=== PATIENT | male | born 1945 | race Caucasian/White ===

== ENCOUNTER 2018-09-08 18:17 | Observation (INO) | payer MEDICARE, OTHER ==
[2018-09-08] MEDS ORDERED: Aspirin 81 MG Tab.Chew PO ONE (18:24)
[2018-09-08] MEDS ORDERED: Morphine 2 MG/ML Syringe IVPUSH ONE (18:24)
[2018-09-08] MEDS ORDERED: Ondansetron 4 MG/2 ML SDV IVPUSH ONE (18:24)
[2018-09-08] MEDS ORDERED: Sodium Chloride 0.9% 10 ML Syringe FLUSH PRN ×2 (18:24→21:17)
[2018-09-08] MEDS ORDERED: Nitroglycerin 2% Oint 1 GM UD Packet TOP ONE (18:24)
[2018-09-08] MEDS ORDERED: Sodium Chloride 0.9% 2.5 ML Syringe FLUSH PRN ×2 (18:24→21:17)
--- NOTE | 2018-09-08 18:27 | EDM.PDOC ---
<Kristopher Rios J - Last Filed: 09/08/18 18:26> ED HPI GENERAL MEDICAL PROBLEM - General Stated Complaint: TIGHTNESS IN CHEST Time Seen by Provider: 09/08/18 18:23 - History of Present Illness INITIAL COMMENTS - FREE TEXT/NARRATIVE: HISTORY AND PHYSICAL: History of present illness: Patient is a 73-year-old white male history of hypertension presents with concern of chest pain that started earlier this afternoon feels as if a tightness across his chest he had some associated dizziness and denies diaphoresis shortness of breath nausea vomiting or palpitations. Review of systems: As per history of present illness and below otherwise all systems reviewed and negative. Past medical history: As per history of present illness and as reviewed below otherwise noncontributory. Surgical history: As per history of present illness and as reviewed below otherwise noncontributory. Social history: No reported history of drug or alcohol abuse. Family history: As per history of present illness and as reviewed below otherwise noncontributory. Physical exam: HEENT: Atraumatic, normocephalic, pupils reactive, negative for conjunctival pallor or scleral icterus, mucous membranes moist, throat clear, neck supple, nontender, trachea midline. Lungs: Clear to auscultation, breath sounds equal bilaterally, chest nontender. Heart: S1S2, regular, negative for clicks, rubs, or JVD. Abdomen: Soft, nondistended, nontender. Negative for masses or hepatosplenomegaly. Negative for costovertebral tenderness. Pelvis: Stable nontender. Genitourinary: Deferred. Rectal: Deferred. Extremities: Atraumatic, negative for cords or calf pain. Neurovascular unremarkable. Neuro: Awake, alert, oriented. Cranial nerves II through XII unremarkable. Cerebellum unremarkable. Motor and sensory unremarkable throughout. Exam nonfocal. Diagnostics: CBC CMP troponin PT/INR BMP chest x-ray EKG Therapeutics: IV O2 monitor aspirin 324 mg nitroglycerin Impression: #1 chest pain #2 hypertension Definitive disposition and diagnosis as appropriate pending reevaluation and review of above. ED ROS GENERAL - Review of Systems Review Of Systems: ROS reveals no pertinent complaints other than HPI. ED EXAM, GENERAL - Physical Exam Exam: See Below (See dictation) Course - Vital Signs Last Recorded V/S: Last Vital Signs Temp 97.0 F 09/08/18 18:17 Pulse 84 09/08/18 18:17 Resp 18 09/08/18 18:17 BP 139/76 09/08/18 18:51 Pulse Ox 100 09/08/18 18:24 - Orders/Labs/Meds Orders: Active Orders 24 hr Category Date Time Status Cardiac Monitoring [RC] . DIRECTED Care 09/08/18 18:24 Active EKG Documentation Completion [RC] STAT Care 09/08/18 18:24 Active Oxygen Therapy, ED [RC] ASDIRECTED Care 09/08/18 18:24 Active Pulse Oximetry [RC] ASDIRECTED Care 09/08/18 18:24 Active Chest 1V Frontal [CR] Stat Exams 09/08/18 18:24 Taken B-TYPE NATRIURETIC PEPTIDE,BNP [CHEM] Stat Lab 09/08/18 18:34 Received Sodium Chloride 0.9% [Normal Saline] 1,000 ml Med 09/08/18 18:30 Active IV STAT Sodium Chloride 0.9% [Saline Flush] Med 09/08/18 18:24 Active 10 ml FLUSH ASDIRECTED PRN Sodium Chloride 0.9% [Saline Flush] Med 09/08/18 18:24 Active 2.5 ml FLUSH ASDIRECTED PRN Saline Lock Insert [OM.PC] Stat Oth 09/08/18 18:23 Ordered Medication Orders Sodium Chloride (Normal Saline) 1,000 mls @ 125 mls/hr IV STAT [facility] Last Admin: 09/08/18 18:36 Dose: 125 mls/hr Sodium Chloride (Saline Flush) 10 ml FLUSH ASDIRECTED PRN PRN Reason: Keep Vein Open Last Admin: 09/08/18 18:40 Dose: 10 ml Sodium Chloride (Saline Flush) 2.5 ml FLUSH ASDIRECTED PRN PRN Reason: Keep Vein Open Last Admin: 09/08/18 18:40 Dose: 2.5 ml Labs: Laboratory Tests 09/08/18 09/08/18 09/08/18 Range/Units 18:34 18:34 18:34 WBC 10.37 (4.0-11.0) K/uL RBC 5.44 (4.50-5.90) M/uL Hgb 16.8 (13.0-17.0) g/dL Hct 48.4 (38.0-50.0) % MCV 89.0 (80.0-98.0) fL MCH 30.9 (27.0-32.0) pg MCHC 34.7 (31.0-37.0) g/dL RDW Std Deviation 44.2 (28.0-62.0) fl RDW Coeff of Isabell 14 (11.0-15.0) % Plt Count 136 L (150-400) K/uL MPV 10.00 (7.40-12.00) fL Neut % (Auto) 74.4 (48.0-80.0) % Lymph % (Auto) 16.1 (16.0-40.0) % [place] % (Auto) 6.3 (0.0-15.0) % Eos % (Auto) 2.8 (0.0-7.0) % Baso % (Auto) 0.4 (0.0-1.5) % Neut # (Auto) 7.7 H (1.4-5.7) K/uL Lymph # (Auto) 1.7 (0.6-2.4) K/uL [place] # (Auto) 0.7 (0.0-0.8) K/uL Eos # (Auto) 0.3 (0.0-0.7) K/uL Baso # (Auto) 0.0 (0.0-0.1) K/uL Nucleated RBC % 0.0 /100WBC Nucleated RBCs # 0 K/uL INR 0.96 Sodium 140 (136-148) mmol/L Potassium 3.6 (3.5-5.1) mmol/L Chloride 102 (98-107) mmol/L Carbon Dioxide 25.4 (21.0-32.0) mmol/L BUN 18 (7.0-18.0) mg/dL Creatinine 1.4 H (0.8-1.3) mg/dL Est Cr Clr Drug Dosing 53.82 mL/min Estimated GFR (MDRD) 49.5 ml/min Glucose 108 H (74-106) mg/dL Calcium 9.3 (8.5-10.1) mg/dL Total Bilirubin 0.6 (0.2-1.0) mg/dL AST 13 L (15-37) IU/L ALT 20 (14-63) IU/L Alkaline Phosphatase 87 (46-116) U/L Troponin I < 0.050 (0.000-0.056) ng/mL Total Protein 7.6 (6.4-8.2) g/dL Albumin 4.0 (3.4-5.0) g/dL Globulin 3.6 (2.6-4.0) g/dL Albumin/Globulin Ratio 1.1 (0.9-1.6) Meds: Medications Generic Name Dose Route Start Last Admin Trade Name Freq PRN Reason Stop Dose Admin Sodium Chloride 1,000 mls @ 125 mls/hr 09/08/18 18:30 09/08/18 18:36 Normal Saline IV 125 mls/hr STAT [facility] Administration Sodium Chloride 10 ml 09/08/18 18:24 09/08/18 18:40 Saline Flush FLUSH 10 ml ASDIRECTED PRN Administration Keep Vein Open Sodium Chloride 2.5 ml 09/08/18 18:24 09/08/18 18:40 Saline Flush FLUSH 2.5 ml ASDIRECTED PRN Administration Keep Vein Open Discontinued Medications Generic Name Dose Route Start Last Admin Trade Name Pratikq PRN Reason Stop Dose Admin Aspirin 324 mg 09/08/18 18:24 09/08/18 18:37 Aspirin PO 09/08/18 18:25 324 mg ONETIME ONE Administration Morphine Sulfate 2 mg 09/08/18 18:24 09/08/18 18:41 Morphine IVPUSH 09/08/18 18:25 2 mg ONETIME ONE Administration Nitroglycerin 0.4 mg 09/08/18 18:24 09/08/18 18:51 Nitrostat SL 0.4 mg Q5M PRN Administration Chest Pain Nitroglycerin 1 gm 09/08/18 18:24 09/08/18 18:38 Nitro-Bid 2% TOP 09/08/18 18:25 1 gm ONETIME ONE Administration Ondansetron HCl 4 mg 09/08/18 18:24 09/08/18 18:37 Zofran IVPUSH 09/08/18 18:25 4 mg ONETIME ONE Administration Departure - Departure Disposition: Refer to Observation Clinical Impression: ACS (acute coronary syndrome) - Discharge Information <Terry Tomlin - Last Filed: 09/08/18 19:33> ED ROS GENERAL - Review of Systems Review Of Systems: See Below ED EXAM, GENERAL - Physical Exam Exam: See Below Departure - Departure Time of Disposition: 19:32 Condition: Fair
[2018-09-08] MEDS ORDERED: Sodium Chloride 0.9% 1,000 ML IV SCH (18:30)
[2018-09-08] MEDS: Nitroglycerin 0.4 MG Tab.SL SL PRN ×3 (18:42→18:51)
[2018-09-08 19:09] LABS: CHLORIDE,CL 102 mmol/L (98-107); SODIUM,NA 140 mmol/L (136-148)
--- NOTE | 2018-09-08 19:34 | CR ---
INDICATION: Chest pain and shortness of breath TECHNIQUE: Chest 1 view COMPARISON: None FINDINGS: Cardiovascular and mediastinum: Heart size and vasculature are normal in caliber and appearance. Lungs and pleural spaces: Lungs are clear. No sign of infiltrate or mass. No sign of pleural effusion. No pneumothorax. Bones and soft tissues: No significant findings. IMPRESSION: No acute or significant findings. Dictated by Obed Foster MD @ Sep 08 2018 7:31PM Signed by Dr. Obed Foster @ Sep 08 2018 7:32PM
[2018-09-08] MEDS ORDERED: Morphine 2 MG/ML Syringe IVPUSH PRN (21:19)
[2018-09-08] MEDS ORDERED: hydrALAZINE 20 MG/ML SDV IVPUSH PRN ×2 (21:20→21:57)
[2018-09-08] MEDS ORDERED: Acetaminophen 325 MG Tab PO PRN (21:21)
[2018-09-08] MEDS ORDERED: oxyCODONE 5 MG Tab PO PRN (21:22)
[2018-09-08] MEDS ORDERED: Temazepam 15 MG Cap PO PRN (21:25)
[2018-09-09] MEDS ORDERED: Ondansetron 4 MG Tab.DIS PO PRN (01:07)
[2018-09-09] MEDS ORDERED: Aspirin 81 MG Tab.Chew PO ONE (07:50)
[2018-09-09] MEDS ORDERED: Clopidogrel 75 MG Tab PO ONE (07:50)
--- NOTE | 2018-09-09 07:58 | PCM.HP ---
<Genevieve Knowles - Last Filed: 09/09/18 09:29> H&P History of Present Illness - General Date of Service: 09/09/18 Admit Problem/Dx: Admission Diagnosis/Problem Admission Diagnosis/Problem Acute coronary syndrome - History of Present Illness Initial Comments - Free Text/Narative: The patient is a 73 year old male who presented to the ER with chest pain/ tightness. The pain was across his upper chest and back. He denies associated shortness of breath, diaphoresis and reports it was not worse with exertion. He has a history of HTN for which he is not on any medications. He reports he uses beet juice to control it. In the ER his blood pressure was 221/114 and he was given hydralazine. He denies history of lung disease, previous history of HI, family history of cardiac disease. He is a former smoker. Overnight he stated he had another episode of chest pain/tightness at 3 am but it resolved on its own. On exam this morning he denies chest pain. In the ER, workup showed MADHU but negative troponin and BNP within normal limits. CXR showed no acute cardiopulmonary process. EKG showed normal sinus rhythm without ST elevation. In the ER he was given ASA, nitro, hydralazine, and IVF. Middle Chest Pain Score (Numeric/FACES): 0 - Related Data Allergies/Adverse Reactions: Allergies Allergy/AdvReac Type Severity Reaction Status Date / Time No Known Allergies Allergy Verified 09/08/18 18:41 Home Medications: Home Meds . [No Known Home Meds] 09/08/18 [History] Past Medical History Cardiovascular History: Reports: Hypertension Other Cardiovascular History: HTN controlled with diet Respiratory History: Reports: None Gastrointestinal History: Reports: None Genitourinary History: Reports: None Musculoskeletal History: Reports: None Psychiatric History: Reports: None Endocrine/Metabolic History: Reports: None Hematologic History: Reports: None Immunologic History: Reports: None Oncologic (Cancer) History: Reports: None Dermatologic History: Reports: Melanoma - Past Surgical History Male Surgical History: Reports: Prostatectomy Dermatological Surgical History: Reports: Other (See Below) Social & Family History - Family History Family Medical History: Noncontributory - Tobacco Use Smoking Status *Q: Former Smoker Used Tobacco, but Quit: Yes Month/Year Tobacco Last Used: 2 years - Caffeine Use Caffeine Use: Reports: Coffee Other Caffeine Use: couple cups a day - Recreational Drug Use Recreational Drug Use: No H&P Review of Systems - Review of Systems: Review Of Systems: See Below General: Reports: No Symptoms HEENT: Reports: No Symptoms Pulmonary: Reports: No Symptoms Cardiovascular: Reports: Chest Pain Gastrointestinal: Reports: No Symptoms Genitourinary: Reports: No Symptoms Musculoskeletal: Reports: No Symptoms Skin: Reports: No Symptoms Psychiatric: Reports: No Symptoms Neurological: Reports: No Symptoms Hematologic/Lymphatic: Reports: No Symptoms Immunologic: Reports: No Symptoms Exam - Exam Exam: See Below - Vital Signs Vital Signs: Last Vital Signs Temp 98.9 F 09/09/18 04:38 Pulse 101 H 09/09/18 07:33 Resp 16 09/09/18 07:33 BP 142/86 H 09/09/18 07:33 Pulse Ox 96 09/09/18 07:33 Weight: 102.058 kg - Exam General: Alert, Oriented, Cooperative HEENT: Conjunctiva Clear, EOMI, Mucosa Moist & Peetz, Posterior Pharynx Clear, Pupils Equal, Pupils Reactive Neck: Supple, Trachea Midline Lungs: Clear to Auscultation, Normal Respiratory Effort Cardiovascular: Regular Rate, Regular Rhythm GI/Abdominal Exam: Normal Bowel Sounds, Soft, Non-Tender, No Distention Extremities: No Pedal Edema Skin: Warm, Dry, Intact Neurological: Cranial Nerves Intact Neuro Extensive - Mental Status: Alert, Oriented x3 Psychiatric: Alert, Normal Affect, Normal Mood - Patient Data Lab Results Last 24 hrs: Laboratory Results - last 24 hr 09/08/18 09/08/18 09/08/18 Range/Units 18:34 18:34 18:34 WBC 10.37 (4.0-11.0) K/uL RBC 5.44 (4.50-5.90) M/uL Hgb 16.8 (13.0-17.0) g/dL Hct 48.4 (38.0-50.0) % MCV 89.0 (80.0-98.0) fL MCH 30.9 (27.0-32.0) pg MCHC 34.7 (31.0-37.0) g/dL RDW Std Deviation 44.2 (28.0-62.0) fl RDW Coeff of Isabell 14 (11.0-15.0) % Plt Count 136 L (150-400) K/uL MPV 10.00 (7.40-12.00) fL Neut % (Auto) 74.4 (48.0-80.0) % Lymph % (Auto) 16.1 (16.0-40.0) % Teller % (Auto) 6.3 (0.0-15.0) % Eos % (Auto) 2.8 (0.0-7.0) % Baso % (Auto) 0.4 (0.0-1.5) % Neut # (Auto) 7.7 H (1.4-5.7) K/uL Lymph # (Auto) 1.7 (0.6-2.4) K/uL Teller # (Auto) 0.7 (0.0-0.8) K/uL Eos # (Auto) 0.3 (0.0-0.7) K/uL Baso # (Auto) 0.0 (0.0-0.1) K/uL Nucleated RBC % 0.0 /100WBC Nucleated RBCs # 0 K/uL INR 0.96 Sodium 140 (136-148) mmol/L Potassium 3.6 (3.5-5.1) mmol/L Chloride 102 (98-107) mmol/L Carbon Dioxide 25.4 (21.0-32.0) mmol/L BUN 18 (7.0-18.0) mg/dL Creatinine 1.4 H (0.8-1.3) mg/dL Est Cr Clr Drug Dosing 53.82 mL/min Estimated GFR (MDRD) 49.5 ml/min Glucose 108 H (74-106) mg/dL Calcium 9.3 (8.5-10.1) mg/dL Total Bilirubin 0.6 (0.2-1.0) mg/dL AST 13 L (15-37) IU/L ALT 20 (14-63) IU/L Alkaline Phosphatase 87 (46-116) U/L Troponin I < 0.050 (0.000-0.056) ng/mL B-Natriuretic Peptide (<100) PG/ML Total Protein 7.6 (6.4-8.2) g/dL Albumin 4.0 (3.4-5.0) g/dL Globulin 3.6 (2.6-4.0) g/dL Albumin/Globulin Ratio 1.1 (0.9-1.6) 09/08/18 09/09/18 09/09/18 Range/Units 18:34 00:55 06:30 WBC (4.0-11.0) K/uL RBC (4.50-5.90) M/uL Hgb (13.0-17.0) g/dL Hct (38.0-50.0) % MCV (80.0-98.0) fL MCH (27.0-32.0) pg MCHC (31.0-37.0) g/dL RDW Std Deviation (28.0-62.0) fl RDW Coeff of Isabell (11.0-15.0) % Plt Count (150-400) K/uL MPV (7.40-12.00) fL Neut % (Auto) (48.0-80.0) % Lymph % (Auto) (16.0-40.0) % Teller % (Auto) (0.0-15.0) % Eos % (Auto) (0.0-7.0) % Baso % (Auto) (0.0-1.5) % Neut # (Auto) (1.4-5.7) K/uL Lymph # (Auto) (0.6-2.4) K/uL Teller # (Auto) (0.0-0.8) K/uL Eos # (Auto) (0.0-0.7) K/uL Baso # (Auto) (0.0-0.1) K/uL Nucleated RBC % /100WBC Nucleated RBCs # K/uL INR Sodium (136-148) mmol/L Potassium (3.5-5.1) mmol/L Chloride (98-107) mmol/L Carbon Dioxide (21.0-32.0) mmol/L BUN (7.0-18.0) mg/dL Creatinine (0.8-1.3) mg/dL Est Cr Clr Drug Dosing mL/min Estimated GFR (MDRD) ml/min Glucose (74-106) mg/dL Calcium (8.5-10.1) mg/dL Total Bilirubin (0.2-1.0) mg/dL AST (15-37) IU/L ALT (14-63) IU/L Alkaline Phosphatase (46-116) U/L Troponin I < 0.050 0.759 H* (0.000-0.056) ng/mL B-Natriuretic Peptide 59 (<100) PG/ML Total Protein (6.4-8.2) g/dL Albumin (3.4-5.0) g/dL Globulin (2.6-4.0) g/dL Albumin/Globulin Ratio (0.9-1.6) 09/09/18 09/09/18 Range/Units 06:30 06:30 WBC 14.47 H (4.0-11.0) K/uL RBC 5.09 (4.50-5.90) M/uL Hgb 15.4 (13.0-17.0) g/dL Hct 45.4 (38.0-50.0) % MCV 89.2 (80.0-98.0) fL MCH 30.3 (27.0-32.0) pg MCHC 33.9 (31.0-37.0) g/dL RDW Std Deviation 44.7 (28.0-62.0) fl RDW Coeff of Isabell 14 (11.0-15.0) % Plt Count 131 L (150-400) K/uL MPV 10.20 (7.40-12.00) fL Neut % (Auto) 82.3 H (48.0-80.0) % Lymph % (Auto) 7.5 L (16.0-40.0) % Teller % (Auto) 10.0 (0.0-15.0) % Eos % (Auto) 0.1 (0.0-7.0) % Baso % (Auto) 0.1 (0.0-1.5) % Neut # (Auto) 11.9 H (1.4-5.7) K/uL Lymph # (Auto) 1.1 (0.6-2.4) K/uL Teller # (Auto) 1.5 H (0.0-0.8) K/uL Eos # (Auto) 0.0 (0.0-0.7) K/uL Baso # (Auto) 0.0 (0.0-0.1) K/uL Nucleated RBC % 0.0 /100WBC Nucleated RBCs # 0 K/uL INR Sodium 139 (136-148) mmol/L Potassium 4.8 (3.5-5.1) mmol/L Chloride 104 (98-107) mmol/L Carbon Dioxide 25.4 (21.0-32.0) mmol/L BUN 17 (7.0-18.0) mg/dL Creatinine 1.5 H (0.8-1.3) mg/dL Est Cr Clr Drug Dosing 50.23 mL/min Estimated GFR (MDRD) 45.7 ml/min Glucose 126 H (74-106) mg/dL Calcium 9.0 (8.5-10.1) mg/dL Total Bilirubin (0.2-1.0) mg/dL AST (15-37) IU/L ALT (14-63) IU/L Alkaline Phosphatase (46-116) U/L Troponin I (0.000-0.056) ng/mL B-Natriuretic Peptide (<100) PG/ML Total Protein (6.4-8.2) g/dL Albumin (3.4-5.0) g/dL Globulin (2.6-4.0) g/dL Albumin/Globulin Ratio (0.9-1.6) Result Diagrams: 09/09/18 06:30 09/09/18 06:30 - Problem List (1) STEMI (ST elevation myocardial infarction) SNOMED Code(s): 476070092 ICD Code: I21.3 - ST ELEVATION (STEMI) MYOCARDIAL INFARCTION OF [facility] SITE Status: Acute (2) MADHU (acute kidney injury) SNOMED Code(s): 55153655 ICD Code: N17.9 - ACUTE KIDNEY FAILURE, UNSPECIFIED Status: Acute (3) HTN (hypertension) SNOMED Code(s): 76360274 ICD Code: I10 - ESSENTIAL (PRIMARY) HYPERTENSION Status: Acute Problem List Initiated/Reviewed/Updated: Yes Orders Last 24hrs: Active Orders 24 hr Category Date Time Status Admission Status [Patient Status] [ADT] Stat ADT 09/08/18 19:33 Active Cardiac Monitoring [RC] . DIRECTED Care 09/08/18 18:24 Active EKG Documentation Completion [RC] STAT Care 09/08/18 18:24 Active EKG Documentation Completion [RC] STAT Care 09/09/18 07:26 Active Oxygen Therapy, ED [RC] ASDIRECTED Care 09/08/18 18:24 Active Pulse Oximetry [RC] ASDIRECTED Care 09/08/18 18:24 Active Telemetry Monitoring [Cardiac Monitoring] [RC] . Care 09/08/18 21:18 Active DIRECTED Nothing per Oral Now Diet [DIET] Diet 09/09/18 Lunch Active Regular Diet [DIET] Diet 09/08/18 Dinner Active Acetaminophen [Tylenol] Med 09/08/18 21:21 Active 650 mg PO Q4H PRN Morphine Med 09/08/18 21:19 Active 2 mg IVPUSH Q4H PRN Ondansetron [Zofran ODT] Med 09/09/18 01:07 Active 4 mg PO Q6H PRN Sodium Chloride 0.9% [Saline Flush] Med 09/08/18 18:24 Active 10 ml FLUSH ASDIRECTED PRN Sodium Chloride 0.9% [Saline Flush] Med 09/08/18 21:17 Active 10 ml FLUSH ASDIRECTED PRN Sodium Chloride 0.9% [Saline Flush] Med 09/08/18 18:24 Active 2.5 ml FLUSH ASDIRECTED PRN Sodium Chloride 0.9% [Saline Flush] Med 09/08/18 21:17 Active 2.5 ml FLUSH ASDIRECTED PRN Temazepam [Restoril] Med 09/08/18 21:25 Active 15 mg PO BEDTIME PRN hydrALAZINE [Apresoline] Med 09/08/18 21:57 Active 20 mg IVPUSH Q8H PRN oxyCODONE Med 09/08/18 21:22 Active 5 mg PO Q4H PRN Convert IV to Saline Lock [OM.PC] Routine Oth 09/08/18 21:17 Ordered Saline Lock Insert [OM.PC] Stat Oth 09/08/18 18:23 Ordered Medication Orders Acetaminophen (Tylenol) 650 mg PO Q4H PRN PRN Reason: Pain Hydralazine HCl (Apresoline) 20 mg IVPUSH Q8H PRN PRN Reason: Hypertension Last Admin: 09/08/18 23:58 Dose: 20 mg Morphine Sulfate (Morphine) 2 mg IVPUSH Q4H PRN PRN Reason: Pain Ondansetron HCl (Zofran Odt) 4 mg PO Q6H PRN PRN Reason: Nausea/Vomiting Oxycodone HCl (Oxycodone) 5 mg PO Q4H PRN PRN Reason: Pain Sodium Chloride (Saline Flush) 10 ml FLUSH ASDIRECTED PRN PRN Reason: Keep Vein Open Last Admin: 09/08/18 18:40 Dose: 10 ml Sodium Chloride (Saline Flush) 2.5 ml FLUSH ASDIRECTED PRN PRN Reason: Keep Vein Open Last Admin: 09/08/18 18:40 Dose: 2.5 ml Sodium Chloride (Saline Flush) 10 ml FLUSH ASDIRECTED PRN PRN Reason: Keep Vein Open Sodium Chloride (Saline Flush) 2.5 ml FLUSH ASDIRECTED PRN PRN Reason: Keep Vein Open Temazepam (Restoril) 15 mg PO BEDTIME PRN PRN Reason: Sleep Assessment/Plan Comment:: 1. STEMI 2. HTN 3. MADHU The patient was admitted to the medical surgical floor for observation. His troponin overnight were negative but his thrid troponin this morning came back elevated at 0.759. An EKG was done which showed new ST elevation in the anterior leads. He was not having any chest pain at time of EKG. We diagnosed the patient with a STEMI, as we do not have a motel operator, we discussed the need to transfer the patient to a higher level of care. Patient was agreeable to transfer. We discussed the case with Dr. Brown, ER provider, at [facility], who accepted the patient for transfer. We also spoke to Dr. Esquivel, cardiology, who recommended thrombolytics, heparin drip, baby aspirin , and [address] Rodríguez administered TNKase and the patient was given a 4000 mg bolus of heparin. The patient was then placed on a heparin drip of 12 mg/kg/hr. At time of transfer vitals were stable. The patient was transferred via air ambulance to [facility] in [place]. <Rajeev Rodríguez - Last Filed: 09/09/18 16:18> H&P History of Present Illness - General Admit Problem/Dx: Admission Diagnosis/Problem Admission Diagnosis/Problem Acute coronary syndrome - History of Present Illness Initial Comments - Free Text/Narative: I have seen and examined the patient independently of medical record consultant, Genevieve Knowles MD. I have discussed the case with her. I have reviewed and agree with the assessment and plan of care for the patient as outlined by her. Please see orders. The patient had elevation of his third troponin at 0.759 ng/ mL. The patient had EKG which was consistent with LAD occlusion. The patient was asymptomatic. Prior to transportation via air to [facility] for cardiac intervention the patient had been given TNK by physician along with heparin with a 4000 unit bolus and 12 units per kilogram per hour drip. He also been given 300 mg of Plavix and 81 mg of aspirin. The patient also had been supplied with oxygen. The patient had said that he had had no pain other than a squeezing sensation. He was hemodynamically stable upon transfer. This was discussed with Dr. Esquivel, cardiology, Kami, DEEPA. Exam - Vital Signs Vital Signs: Last Vital Signs Temp 37.2 C 09/09/18 04:38 Pulse 101 H 09/09/18 07:33 Resp 16 09/09/18 07:33 BP 142/86 H 09/09/18 07:33 Pulse Ox 96 09/09/18 07:33 - Patient Data Lab Results Last 24 hrs: Laboratory Results - last 24 hr 09/08/18 09/08/18 09/08/18 Range/Units 18:34 18:34 18:34 WBC 10.37 (4.0-11.0) K/uL RBC 5.44 (4.50-5.90) M/uL Hgb 16.8 (13.0-17.0) g/dL Hct 48.4 (38.0-50.0) % MCV 89.0 (80.0-98.0) fL MCH 30.9 (27.0-32.0) pg MCHC 34.7 (31.0-37.0) g/dL RDW Std Deviation 44.2 (28.0-62.0) fl RDW Coeff of Isabell 14 (11.0-15.0) % Plt Count 136 L (150-400) K/uL MPV 10.00 (7.40-12.00) fL Neut % (Auto) 74.4 (48.0-80.0) % Lymph % (Auto) 16.1 (16.0-40.0) % Teller % (Auto) 6.3 (0.0-15.0) % Eos % (Auto) 2.8 (0.0-7.0) % Baso % (Auto) 0.4 (0.0-1.5) % Neut # (Auto) 7.7 H (1.4-5.7) K/uL Lymph # (Auto) 1.7 (0.6-2.4) K/uL Teller # (Auto) 0.7 (0.0-0.8) K/uL Eos # (Auto) 0.3 (0.0-0.7) K/uL Baso # (Auto) 0.0 (0.0-0.1) K/uL Nucleated RBC % 0.0 /100WBC Nucleated RBCs # 0 K/uL INR 0.96 Sodium 140 (136-148) mmol/L Potassium 3.6 (3.5-5.1) mmol/L Chloride 102 (98-107) mmol/L Carbon Dioxide 25.4 (21.0-32.0) mmol/L BUN 18 (7.0-18.0) mg/dL Creatinine 1.4 H (0.8-1.3) mg/dL Est Cr Clr Drug Dosing 53.82 mL/min Estimated GFR (MDRD) 49.5 ml/min Glucose 108 H (74-106) mg/dL Calcium 9.3 (8.5-10.1) mg/dL Total Bilirubin 0.6 (0.2-1.0) mg/dL AST 13 L (15-37) IU/L ALT 20 (14-63) IU/L Alkaline Phosphatase 87 (46-116) U/L Troponin I < 0.050 (0.000-0.056) ng/mL B-Natriuretic Peptide (<100) PG/ML Total Protein 7.6 (6.4-8.2) g/dL Albumin 4.0 (3.4-5.0) g/dL Globulin 3.6 (2.6-4.0) g/dL Albumin/Globulin Ratio 1.1 (0.9-1.6) 09/08/18 09/09/18 09/09/18 Range/Units 18:34 00:55 06:30 WBC (4.0-11.0) K/uL RBC (4.50-5.90) M/uL Hgb (13.0-17.0) g/dL Hct (38.0-50.0) % MCV (80.0-98.0) fL MCH (27.0-32.0) pg MCHC (31.0-37.0) g/dL RDW Std Deviation (28.0-62.0) fl RDW Coeff of Isabell (11.0-15.0) % Plt Count (150-400) K/uL MPV (7.40-12.00) fL Neut % (Auto) (48.0-80.0) % Lymph % (Auto) (16.0-40.0) % Teller % (Auto) (0.0-15.0) % Eos % (Auto) (0.0-7.0) % Baso % (Auto) (0.0-1.5) % Neut # (Auto) (1.4-5.7) K/uL Lymph # (Auto) (0.6-2.4) K/uL Teller # (Auto) (0.0-0.8) K/uL Eos # (Auto) (0.0-0.7) K/uL Baso # (Auto) (0.0-0.1) K/uL Nucleated RBC % /100WBC Nucleated RBCs # K/uL INR Sodium (136-148) mmol/L Potassium (3.5-5.1) mmol/L Chloride (98-107) mmol/L Carbon Dioxide (21.0-32.0) mmol/L BUN (7.0-18.0) mg/dL Creatinine (0.8-1.3) mg/dL Est Cr Clr Drug Dosing mL/min Estimated GFR (MDRD) ml/min Glucose (74-106) mg/dL Calcium (8.5-10.1) mg/dL Total Bilirubin (0.2-1.0) mg/dL AST (15-37) IU/L ALT (14-63) IU/L Alkaline Phosphatase (46-116) U/L Troponin I < 0.050 0.759 H* (0.000-0.056) ng/mL B-Natriuretic Peptide 59 (<100) PG/ML Total Protein (6.4-8.2) g/dL Albumin (3.4-5.0) g/dL Globulin (2.6-4.0) g/dL Albumin/Globulin Ratio (0.9-1.6) 09/09/18 09/09/18 Range/Units 06:30 06:30 WBC 14.47 H (4.0-11.0) K/uL RBC 5.09 (4.50-5.90) M/uL Hgb 15.4 (13.0-17.0) g/dL Hct 45.4 (38.0-50.0) % MCV 89.2 (80.0-98.0) fL MCH 30.3 (27.0-32.0) pg MCHC 33.9 (31.0-37.0) g/dL RDW Std Deviation 44.7 (28.0-62.0) fl RDW Coeff of Isabell 14 (11.0-15.0) % Plt Count 131 L (150-400) K/uL MPV 10.20 (7.40-12.00) fL Neut % (Auto) 82.3 H (48.0-80.0) % Lymph % (Auto) 7.5 L (16.0-40.0) % Teller % (Auto) 10.0 (0.0-15.0) % Eos % (Auto) 0.1 (0.0-7.0) % Baso % (Auto) 0.1 (0.0-1.5) % Neut # (Auto) 11.9 H (1.4-5.7) K/uL Lymph # (Auto) 1.1 (0.6-2.4) K/uL Teller # (Auto) 1.5 H (0.0-0.8) K/uL Eos # (Auto) 0.0 (0.0-0.7) K/uL Baso # (Auto) 0.0 (0.0-0.1) K/uL Nucleated RBC % 0.0 /100WBC Nucleated RBCs # 0 K/uL INR Sodium 139 (136-148) mmol/L Potassium 4.8 (3.5-5.1) mmol/L Chloride 104 (98-107) mmol/L Carbon Dioxide 25.4 (21.0-32.0) mmol/L BUN 17 (7.0-18.0) mg/dL Creatinine 1.5 H (0.8-1.3) mg/dL Est Cr Clr Drug Dosing 50.23 mL/min Estimated GFR (MDRD) 45.7 ml/min Glucose 126 H (74-106) mg/dL Calcium 9.0 (8.5-10.1) mg/dL Total Bilirubin (0.2-1.0) mg/dL AST (15-37) IU/L ALT (14-63) IU/L Alkaline Phosphatase (46-116) U/L Troponin I (0.000-0.056) ng/mL B-Natriuretic Peptide (<100) PG/ML Total Protein (6.4-8.2) g/dL Albumin (3.4-5.0) g/dL Globulin (2.6-4.0) g/dL Albumin/Globulin Ratio (0.9-1.6) Result Diagrams: 09/09/18 06:30 09/09/18 06:30 Orders Last 24hrs: Active Orders 24 hr Category Date Time Status Admission Status [Patient Status] [ADT] Stat ADT 09/08/18 19:33 Active Cardiac Monitoring [RC] . DIRECTED Care 09/08/18 18:24 Active EKG Documentation Completion [RC] STAT Care 09/08/18 18:24 Active EKG Documentation Completion [RC] STAT Care 09/09/18 07:26 Active Oxygen Therapy, ED [RC] ASDIRECTED Care 09/08/18 18:24 Active Pulse Oximetry [RC] ASDIRECTED Care 09/08/18 18:24 Active Premium Representative Discontinue [Cardiac Monitoring Care 09/09/18 08:30 Active Discontinue] [RC] Click to Edit Telemetry Monitoring [Cardiac Monitoring] [RC] . Care 09/08/18 21:18 Active DIRECTED Convert IV to Saline Lock [OM.PC] Routine Oth 09/08/18 21:17 Ordered Saline Lock Insert [OM.PC] Stat Oth 09/08/18 18:23 Ordered
[2018-09-09] MEDS ORDERED: Tenecteplase 50 MG Kit IV ONE (08:07)
[2018-09-09] MEDS: Tenecteplase 50 MG Kit ONE ×2 (08:15→08:17)
[2018-09-09] MEDS ORDERED: Heparin Sod,Pork In 0.45% Nacl 25,000 UNIT/500 ML IV.SOLN IV SCH (08:15)
[2018-09-09] MEDS ORDERED: Heparin Sodium 5,000 Units/ML Vial IVPUSH ONE (08:20)
[2018-09-09] MEDS ORDERED: Heparin Sodium 5,000 Units/ML Vial ONE (08:27)
== END 2018-09-09 08:40 ==
LOC: MW.ED 18:17 → MW.MS 20:16
PROVIDERS: ADMIT Internal Medicine; ATTEND Internal Medicine
DX: I21.3 ST elevation (STEMI) myocardial infarction of unspecified site (principal); N17.9 Acute kidney failure, unspecified; I10 Essential (primary) hypertension; Z87.891 Personal history of nicotine dependence
CPT/HCPCS: 36415; 71045; 80048; 80053; 83880; 84484; 85025; 85610; 93005; 96361; 96374; 96375; 99285; A9270; J0360; J1644; J2270; J2405; J3101; J7040; 99284; G0378

== ENCOUNTER 2018-10-02 08:13 | Emergency (ER) | payer MEDICARE, OTHER ==
[2018-10-02] MEDS ORDERED: Aspirin 81 MG Tab.Chew PO ONE (08:18)
[2018-10-02] MEDS ORDERED: Pantoprazole 40 MG Vial IVPUSH ONE (08:18)
[2018-10-02] MEDS ORDERED: Nitroglycerin 0.4 MG Tab.SL SL PRN (08:19)
[2018-10-02] MEDS ORDERED: Sodium Chloride 0.9% 20 ML ONE (08:26)
[2018-10-02] MEDS ORDERED: Sodium Chloride 0.9% 1,000 ML IV SCH (08:30)
--- NOTE | 2018-10-02 08:38 | EDM.PDOC ---
ED HPI GENERAL MEDICAL PROBLEM - General Chief Complaint: Respiratory Problem Stated Complaint: SENT IN BY DR. BORGES OF BREATH Time Seen by Provider: 10/02/18 08:37 Source of Information: Reports: Patient - History of Present Illness INITIAL COMMENTS - FREE TEXT/NARRATIVE: HISTORY AND PHYSICAL: History of present illness: [Patient presents with chief complaint shortness breath epigastric pain post PR September 09 on anticoagulation with dark stools, no radiation to arm neck or jaw not associated with diaphoresis Hemoglobin is trended from 16-10, renal insufficiency is trending up currently at 1.6 potassium is stable Edition had 2 stents placed recently on 0 though guaiac is 4+ ] Review of systems: As per history of present illness and below otherwise all systems reviewed and negative. Past medical history: As per history of present illness and as reviewed below otherwise noncontributory. Surgical history: As per history of present illness and as reviewed below otherwise noncontributory. Social history: No reported history of drug or alcohol abuse. Family history: As per history of present illness and as reviewed below otherwise noncontributory. Physical exam: HEENT: Atraumatic, normocephalic, pupils reactive, negative for conjunctival pallor or scleral icterus, mucous membranes moist, throat clear, neck supple, nontender, trachea midline. Lungs: Clear to auscultation, breath sounds equal bilaterally, chest nontender. Heart: S1S2, regular, negative for clicks, rubs, or JVD. Abdomen: Soft, nondistended, nontender. Negative for masses or hepatosplenomegaly. Negative for costovertebral tenderness. Pelvis: Stable nontender. Genitourinary: Deferred. Rectal: Deferred. Extremities: Atraumatic, negative for cords or calf pain. Neurovascular unremarkable. Neuro: Awake, alert, oriented. Cranial nerves II through XII unremarkable. Cerebellum unremarkable. Motor and sensory unremarkable throughout. Exam nonfocal. Diagnostics: [CBC CMP UA troponin lipase EKG Chest 1 view] Therapeutics: [Saline 1 25 mL per hour nitroglycerin 1 dose on arrival no change in epigastric discomfort Distant discussed patient with ER Dr. Rodriguez was accepted transfer Did speak with Dr. Sheldon Ling do cardiology on-call, commands transfer I did discuss attempt to discuss with Dr. Radha HU on-call who was in surgery and was unable to speakAt present time but is aware of the patient ] Impression: GI bleed on xeralto Anemia hemoglobin trending down 5 points over the last 2 weeks [ recent PR with stenting Normal insufficiency History of hiatal hernia] Definitive disposition and diagnosis as appropriate pending reevaluation and review of above. - Related Data Allergies Allergy/AdvReac Type Severity Reaction Status Date / Time No Known Allergies Allergy Verified 10/02/18 08:51 Home Meds: Home Meds Amiodarone HCl [Pacerone] 200 mg PO DAILY 10/02/18 [History] Clopidogrel [Plavix] 75 mg PO DAILY 10/02/18 [History] Furosemide 20 mg PO DAILY 10/02/18 [History] Lisinopril 5 mg PO DAILY 10/02/18 [History] Metoprolol Succinate [Toprol XL] 25 mg PO DAILY 10/02/18 [History] Rivaroxaban [Xarelto] 20 mg PO DAILY 10/02/18 [History] atorvaSTATin [Lipitor] 20 mg PO DAILY 10/02/18 [History] Past Medical History Cardiovascular History: Reports: Hypertension Other Cardiovascular History: HTN controlled with diet Respiratory History: Reports: None Gastrointestinal History: Reports: None Genitourinary History: Reports: None Musculoskeletal History: Reports: None Psychiatric History: Reports: None Endocrine/Metabolic History: Reports: None Hematologic History: Reports: None Immunologic History: Reports: None Oncologic (Cancer) History: Reports: None Dermatologic History: Reports: Melanoma - Past Surgical History Male Surgical History: Reports: Prostatectomy Dermatological Surgical History: Reports: Other (See Below) Social & Family History - Family History Family Medical History: Noncontributory - Caffeine Use Caffeine Use: Reports: Coffee Other Caffeine Use: couple cups a day ED ROS GENERAL - Review of Systems Review Of Systems: See Below ED EXAM, GENERAL - Physical Exam Exam: See Below Course - Vital Signs Last Recorded V/S: Last Vital Signs Temp 97.1 F 10/02/18 08:15 Pulse 94 10/02/18 08:45 Resp 18 10/02/18 08:45 BP 80/51 L 10/02/18 08:45 Pulse Ox 85 L 10/02/18 08:45 - Orders/Labs/Meds Orders: Active Orders 24 hr Category Date Time Status UA RFX BETSY AND CULT IF INDIC [URIN] Stat Lab 10/02/18 08:19 Ordered Nitroglycerin [Nitrostat] Med 10/02/18 08:19 Active 0.4 mg SL Q5M PRN Sodium Chloride 0.9% [Normal Saline] 1,000 ml Med 10/02/18 08:30 Active IV STAT Medication Orders Sodium Chloride (Normal Saline) 1,000 mls @ 125 mls/hr IV STAT STACEY Last Admin: 10/02/18 08:32 Dose: 125 mls/hr Nitroglycerin (Nitrostat) 0.4 mg SL Q5M PRN PRN Reason: Chest Pain Last Admin: 10/02/18 08:33 Dose: 0.4 mg Labs: Laboratory Tests 10/02/18 10/02/18 10/02/18 Range/Units 08:20 08:20 08:20 WBC 14.33 H (4.0-11.0) K/uL RBC 3.62 L (4.50-5.90) M/uL Hgb 10.6 L (13.0-17.0) g/dL Hct 32.2 L (38.0-50.0) % MCV 89.0 (80.0-98.0) fL MCH 29.3 (27.0-32.0) pg MCHC 32.9 (31.0-37.0) g/dL RDW Std Deviation 43.9 (28.0-62.0) fl RDW Coeff of Isabell 14 (11.0-15.0) % Plt Count 280 (150-400) K/uL MPV 9.30 (7.40-12.00) fL Add Manual Diff YES Neutrophils % (Manual) 79 (48.0-80.0) % Band Neutrophils % 1 % Lymphocytes % (Manual) 11 L (16.0-40.0) % Monocytes % (Manual) 7 (0.0-15.0) % Eosinophils % (Manual) 1 (0.0-7.0) % Basophils % (Manual) 1 (0.0-1.5) % Nucleated RBC % 0.0 /100WBC Absolute Seg Neuts 11.3 H (1.4-5.7) Band Neutrophils # 0.1 Lymphocytes # (Manual) 1.6 (0.6-2.4) Monocytes # (Manual) 1.0 H (0.0-0.8) Eosinophils # (Manual) 0.1 (0.0-0.7) Basophils # (Manual) 0.1 (0.0-0.1) Nucleated RBCs # 0 K/uL Vacuolated Monocytes FEW INR 1.24 Sodium 131 L (136-148) mmol/L Potassium 4.4 (3.5-5.1) mmol/L Chloride 95 L (98-107) mmol/L Carbon Dioxide 25.2 (21.0-32.0) mmol/L BUN 33 H (7.0-18.0) mg/dL Creatinine 1.6 H (0.8-1.3) mg/dL Est Cr Clr Drug Dosing 47.09 mL/min Estimated GFR (MDRD) 42.5 ml/min Glucose 152 H (74-106) mg/dL Calcium 9.2 (8.5-10.1) mg/dL Total Bilirubin 0.9 (0.2-1.0) mg/dL AST 23 (15-37) IU/L ALT 20 (14-63) IU/L Alkaline Phosphatase 79 (46-116) U/L Troponin I 0.186 H* (0.000-0.056) ng/mL Total Protein 6.8 (6.4-8.2) g/dL Albumin 3.1 L (3.4-5.0) g/dL Globulin 3.7 (2.6-4.0) g/dL Albumin/Globulin Ratio 0.8 L (0.9-1.6) Lipase 134 (73-393) U/L Meds: Medications Generic Name Dose Route Start Last Admin Trade Name Freq PRN Reason Stop Dose Admin Sodium Chloride 1,000 mls @ 125 mls/hr 10/02/18 08:30 10/02/18 08:32 Normal Saline IV 125 mls/hr STAT STACEY Administration Nitroglycerin 0.4 mg 10/02/18 08:19 10/02/18 08:33 Nitrostat SL 0.4 mg Q5M PRN Administration Chest Pain Discontinued Medications Generic Name Dose Route Start Last Admin Trade Name Freq PRN Reason Stop Dose Admin Aspirin 324 mg 10/02/18 08:18 10/02/18 08:42 Aspirin PO 10/02/18 08:19 Not Given ONETIME ONE Sodium Chloride Confirm 10/02/18 08:26 10/02/18 08:46 Normal Saline Administered 10/02/18 08:27 20 mls/hr Dose Administration 20 mls @ as directed .ROUTE .STK-MED ONE Pantoprazole Sodium 80 mg 10/02/18 08:18 10/02/18 08:36 Protonix Iv IVPUSH 10/02/18 08:19 80 mg .BOLUS ONE Administration Departure - Departure Time of Disposition: 09:35 Disposition: Home, Self-Care 01 Condition: Good Clinical Impression: GI bleed - Discharge Information Referrals: Venkata Rodriguez MD [Primary Care Provider] - Forms: ED Department Discharge - My Orders Last 24 Hours: My Active Orders 10/02/18 08:19 UA RFX BETSY AND CULT IF INDIC [URIN] Stat Nitroglycerin [Nitrostat] 0.4 mg SL Q5M PRN 10/02/18 08:30 Sodium Chloride 0.9% [Normal Saline] 1,000 ml IV STAT - Assessment/Plan Last 24 Hours: My Active Orders 10/02/18 08:19 UA RFX BETSY AND CULT IF INDIC [URIN] Stat Nitroglycerin [Nitrostat] 0.4 mg SL Q5M PRN 10/02/18 08:30 Sodium Chloride 0.9% [Normal Saline] 1,000 ml IV STAT
== END 2018-10-02 10:20 ==
LOC: MW.ED 08:13
DX: K92.2 Gastrointestinal hemorrhage, unspecified (principal); T45.515A Adverse effect of anticoagulants, initial encounter; D64.9 Anemia, unspecified; I25.2 Old myocardial infarction; I10 Essential (primary) hypertension; Z79.899 Other long term (current) drug therapy; Z79.01 Long term (current) use of anticoagulants
CPT/HCPCS: 36415; 80053; 83690; 84484; 85025; 85610; 93005; 96361; 96374; 99285; A9270; C9113; J7040

== ENCOUNTER 2023-02-28 17:12 | Emergency (ER) | payer MEDICARE, OTHER ==
[2023-02-28] MEDS ORDERED: Sodium Chloride 0.9% 10 ML Syringe FLUSH PRN (18:30)
[2023-02-28] MEDS ORDERED: Sodium Chloride 0.9% 2.5 ML Syringe FLUSH PRN (18:30)
[2023-02-28] MEDS ORDERED: Metoprolol Tartrate 5 MG/5 ML SDV IVPUSH ONE (20:26)
[2023-02-28 20:50] LABS: BASOPHILS PERCENT AUTO 0.4 % (0.0-1.5); EOSINOPHILS ABSOLUTE AUTO 0.2 K/uL (0.0-0.7); EOSINOPHILS PERCENT AUTO 2.3 % (0.0-7.0); HEMATOCRIT 48.7 % (38.0-50.0); HEMOGLOBIN 16.7 g/dL (13.0-17.0); LYMPHOCYTES ABSOLUTE AUTO 0.7 K/uL (0.6-2.4); MEAN CORPUSCULAR HEMOGLOBIN 29.5 pg (27.0-32.0); MEAN CORPUSCULAR HGB CONC 34.3 g/dL (31.0-37.0); MONOCYTES ABSOLUTE AUTO 0.8 K/uL (0.0-0.8); MONOCYTES PERCENT AUTO 10.6 % (0.0-15.0); NEUTROPHILS ABSOLUTE AUTO 6.1 K/uL (1.4-5.7); NEUTROPHILS PERCENT AUTO 77.7 % (48.0-80.0); NRBC ABSOLUTE 0 K/uL; PLATELET COUNT,PLT 174 K/uL (150-400); RED BLOOD CELL COUNT 5.66 M/uL (4.50-5.90); WHITE BLOOD CELL COUNT,WBC 7.85 K/uL (4.0-11.0)
[2023-02-28 21:21] LABS: ALBUMIN 3.9 g/dL (3.4-5.0); BILIRUBIN TOTAL 0.9 mg/dL (0.2-1.0); CALCIUM 9.6 mg/dL (8.5-10.1); CARBON DIOXIDE,CO2 25.3 mmol/L (21.0-32.0); CREATININE 1.6 mg/dL (0.8-1.3); EST CRCL DRUG DOSING (CG) 44.24 mL/min; MAGNESIUM 2.2 mg/dL (1.8-2.4); POTASSIUM,K 4.2 mmol/L (3.5-5.1); PROTEIN TOTAL,TP 7.7 g/dL (6.4-8.2); TSH ULTRASENSITIVE 3.89 uIU/mL (0.36-3.74)
[2023-02-28 21:43] LABS: T4 FREE 0.99 ng/dL (0.76-1.46)
== END 2023-02-28 21:49 | disposition home or self-care (01) ==
LOC: MW.ED 17:12
DX: I48.91 Unspecified atrial fibrillation (principal); I10 Essential (primary) hypertension; I25.2 Old myocardial infarction; Z79.01 Long term (current) use of anticoagulants; Z79.899 Other long term (current) drug therapy; Z79.02 Long term (current) use of antithrombotics/antiplatelets; Z87.891 Personal history of nicotine dependence
CPT/HCPCS: 36415; 71045; 80053; 83735; 84439; 84443; 84484; 85025; 85379; 93005; 96374; 99285; J3490; 93010; 99284

== ENCOUNTER 2023-03-07 22:10 | Inpatient (IN) | payer MEDICARE, OTHER ==
[2023-03-07] MEDS ORDERED: Sodium Chloride 0.9% 10 ML Syringe FLUSH PRN (23:02)
[2023-03-07] MEDS ORDERED: Sodium Chloride 0.9% 2.5 ML Syringe FLUSH PRN (23:02)
[2023-03-07] MEDS ORDERED: Nitroglycerin 2% Oint 1 GM UD Packet TOP ONE (23:04)
[2023-03-07] MEDS ORDERED: Diltiazem 25 MG/5 ML SDV IVPUSH ONE (23:04)
[2023-03-07] MEDS ORDERED: Furosemide 40 MG/4 ML VIAL IVPUSH ONE (23:04)
[2023-03-07 23:17] LABS: BASOPHILS PERCENT AUTO 0.1 % (0.0-1.5); EOSINOPHILS ABSOLUTE AUTO 0.1 K/uL (0.0-0.7); EOSINOPHILS PERCENT AUTO 1.3 % (0.0-7.0); HEMOGLOBIN 14.6 g/dL (13.0-17.0); LYMPHOCYTES ABSOLUTE AUTO 0.8 K/uL (0.6-2.4); LYMPHOCYTES PERCENT AUTO 8.2 % (16.0-40.0); MEAN CORPUSCULAR HEMOGLOBIN 29.5 pg (27.0-32.0); MEAN CORPUSCULAR HGB CONC 34.8 g/dL (31.0-37.0); MEAN CORPUSCULAR VOLUME 84.8 fL (80.0-98.0); MONOCYTES ABSOLUTE AUTO 0.8 K/uL (0.0-0.8); MONOCYTES PERCENT AUTO 8.5 % (0.0-15.0); NEUTROPHILS ABSOLUTE AUTO 7.5 K/uL (1.4-5.7); NEUTROPHILS PERCENT AUTO 81.9 % (48.0-80.0); NRBC ABSOLUTE 0 K/uL; PLATELET COUNT,PLT 228 K/uL (150-400); RED BLOOD CELL COUNT 4.95 M/uL (4.50-5.90); WHITE BLOOD CELL COUNT,WBC 9.17 K/uL (4.0-11.0)
[2023-03-07 23:24] LABS: INR 1.18 (0.86-1.11)
[2023-03-07 23:38] LABS: A/G RATIO 0.9 (0.9-1.6); ALBUMIN 3.6 g/dL (3.4-5.0); BILIRUBIN TOTAL 1.6 mg/dL (0.2-1.0); CALCIUM 9.1 mg/dL (8.5-10.1); CREATININE 1.5 mg/dL (0.8-1.3); EST CRCL DRUG DOSING (CG) 47.19 mL/min; POTASSIUM,K 4.4 mmol/L (3.5-5.1); PROTEIN TOTAL,TP 7.4 g/dL (6.4-8.2); TSH ULTRASENSITIVE 4.77 uIU/mL (0.36-3.74)
[2023-03-07] MEDS ORDERED: Azithromycin 500 MG in Sodium Chloride 0.9% 250 ML IV ONE (23:56)
[2023-03-07] MEDS ORDERED: cefTRIAXone 1 GM in Sodium Chloride 0.9% 50 ML IV ONE (23:56)
[2023-03-08 00:05] LABS: LACTIC ACID 1.1 mmol/L (0.4-2.0)
[2023-03-08 00:22] LABS: T4 FREE 1.24 ng/dL (0.76-1.46)
[2023-03-08 01:32] LABS: CALCIUM 8.7 mg/dL (8.5-10.1); CARBON DIOXIDE,CO2 21.1 mmol/L (21.0-32.0); CREATININE 1.4 mg/dL (0.8-1.3); EST CRCL DRUG DOSING (CG) 50.56 mL/min; POTASSIUM,K 4.1 mmol/L (3.5-5.1)
[2023-03-08] MEDS ORDERED: Iopamidol 755 MG/ML 500 ML Multipack Bottle IVPUSH STA (02:33)
[2023-03-08 02:59] LABS: CORONAVIRUS COVID-19 NAA NEGATIVE (NEGATIVE); INFLUENZA A NAA NEGATIVE (NEGATIVE); INFLUENZA B NAA NEGATIVE (NEGATIVE)
[2023-03-08 03:56] LABS: EST CRCL DRUG DOSING (CG) 50.56 mL/min
[2023-03-08 04:08] LABS: CALCIUM 8.6 mg/dL (8.5-10.1); CARBON DIOXIDE,CO2 18.7 mmol/L (21.0-32.0); CREATININE 1.4 mg/dL (0.8-1.3); POTASSIUM,K 4.3 mmol/L (3.5-5.1)
[2023-03-08] MEDS ORDERED: Diltiazem 25 MG/5 ML SDV IVPUSH ONE (06:42)
[2023-03-08 07:13] LABS: CARBON DIOXIDE,CO2 24.6 mmol/L (21.0-32.0); CREATININE 1.5 mg/dL (0.8-1.3); EST CRCL DRUG DOSING (CG) 47.19 mL/min; POTASSIUM,K 4.7 mmol/L (3.5-5.1)
[2023-03-08] MEDS ORDERED: Ondansetron 4 MG/2 ML SDV IVPUSH PRN (07:51)
[2023-03-08] MEDS ORDERED: Sodium Chloride 0.9% 2.5 ML Syringe FLUSH PRN (07:51)
[2023-03-08] MEDS ORDERED: Sodium Chloride 0.9% 10 ML Syringe FLUSH PRN (07:51)
[2023-03-08] MEDS ORDERED: Heparin Sodium 5,000 Units/ML Vial SUBCUT SCH (08:00)
[2023-03-08] MEDS: Clopidogrel 75 MG Tab PO SCH (08:56)
[2023-03-08] MEDS: Lisinopril 5 MG Tab PO SCH (08:56)
[2023-03-08] MEDS ORDERED: Metoprolol Succinate 50 MG Tab.ER PO SCH (09:00)
[2023-03-08 10:06] LABS: BASOPHILS PERCENT AUTO 0.2 % (0.0-1.5); EOSINOPHILS ABSOLUTE AUTO 0.1 K/uL (0.0-0.7); EOSINOPHILS PERCENT AUTO 0.7 % (0.0-7.0); HEMATOCRIT 41.9 % (38.0-50.0); HEMOGLOBIN 14.3 g/dL (13.0-17.0); LYMPHOCYTES ABSOLUTE AUTO 0.7 K/uL (0.6-2.4); LYMPHOCYTES PERCENT AUTO 6.7 % (16.0-40.0); MEAN CORPUSCULAR HEMOGLOBIN 28.8 pg (27.0-32.0); MEAN CORPUSCULAR HGB CONC 34.1 g/dL (31.0-37.0); MEAN CORPUSCULAR VOLUME 84.5 fL (80.0-98.0); MONOCYTES ABSOLUTE AUTO 0.9 K/uL (0.0-0.8); MONOCYTES PERCENT AUTO 9.5 % (0.0-15.0); NEUTROPHILS PERCENT AUTO 82.9 % (48.0-80.0); NRBC ABSOLUTE 0 K/uL; PLATELET COUNT,PLT 239 K/uL (150-400); RED BLOOD CELL COUNT 4.96 M/uL (4.50-5.90); WHITE BLOOD CELL COUNT,WBC 9.68 K/uL (4.0-11.0)
[2023-03-08 10:29] LABS: HEMOGLOBIN A1C 5.4 %
[2023-03-08 10:37] LABS: CALCIUM 8.7 mg/dL (8.5-10.1); CARBON DIOXIDE,CO2 21.5 mmol/L (21.0-32.0); CREATININE 1.6 mg/dL (0.8-1.3); EST CRCL DRUG DOSING (CG) 44.24 mL/min
[2023-03-08] MEDS: Furosemide 40 MG/4 ML VIAL IVPUSH SCH ×2 (10:39→14:21)
[2023-03-08] MEDS: Acetaminophen 325 MG Tab PO PRN (14:21)
[2023-03-08] MEDS: Simethicone 80 MG Tab.Chew PO PRN (14:56)
[2023-03-08 15:14] LABS: CARBON DIOXIDE,CO2 25.2 mmol/L (21.0-32.0); CREATININE 1.6 mg/dL (0.8-1.3); EST CRCL DRUG DOSING (CG) 44.24 mL/min; POTASSIUM,K 3.7 mmol/L (3.5-5.1)
[2023-03-08] MEDS: Diltiazem 25 MG/5 ML SDV IVPUSH PRN ×2 (17:41→23:01)
[2023-03-08 18:35] LABS: CALCIUM 8.9 mg/dL (8.5-10.1); CREATININE 1.7 mg/dL (0.8-1.3); EST CRCL DRUG DOSING (CG) 41.64 mL/min; POTASSIUM,K 3.6 mmol/L (3.5-5.1)
[2023-03-08] MEDS: atorvaSTATin 20 MG Tab PO SCH (21:01)
[2023-03-08] MEDS: Apixaban 5 MG Tab PO SCH (21:01)
[2023-03-08] MEDS: cefTRIAXone 1 GM in Sodium Chloride 0.9% 50 ML IV SCH (21:01)
[2023-03-08] MEDS: Azithromycin 500 MG in Sodium Chloride 0.9% 250 ML IV SCH (22:10)
[2023-03-08 22:45] LABS: CALCIUM 8.7 mg/dL (8.5-10.1); CARBON DIOXIDE,CO2 25.8 mmol/L (21.0-32.0); CREATININE 1.8 mg/dL (0.8-1.3); EST CRCL DRUG DOSING (CG) 39.32 mL/min; POTASSIUM,K 3.9 mmol/L (3.5-5.1)
[2023-03-09 07:16] LABS: BASOPHILS PERCENT AUTO 0.1 % (0.0-1.5); EOSINOPHILS PERCENT AUTO 0.1 % (0.0-7.0); HEMATOCRIT 39.2 % (38.0-50.0); LYMPHOCYTES ABSOLUTE AUTO 0.6 K/uL (0.6-2.4); LYMPHOCYTES PERCENT AUTO 4.5 % (16.0-40.0); MEAN CORPUSCULAR HEMOGLOBIN 29.8 pg (27.0-32.0); MEAN CORPUSCULAR HGB CONC 35.7 g/dL (31.0-37.0); MEAN CORPUSCULAR VOLUME 83.4 fL (80.0-98.0); MONOCYTES ABSOLUTE AUTO 1.5 K/uL (0.0-0.8); MONOCYTES PERCENT AUTO 10.5 % (0.0-15.0); NEUTROPHILS PERCENT AUTO 84.8 % (48.0-80.0); NRBC ABSOLUTE 0 K/uL; PLATELET COUNT,PLT 205 K/uL (150-400); WHITE BLOOD CELL COUNT,WBC 14.16 K/uL (4.0-11.0)
[2023-03-09 07:37] LABS: CALCIUM 8.8 mg/dL (8.5-10.1); CARBON DIOXIDE,CO2 23.5 mmol/L (21.0-32.0); CREATININE 1.6 mg/dL (0.8-1.3); EST CRCL DRUG DOSING (CG) 44.24 mL/min; MAGNESIUM 1.9 mg/dL (1.8-2.4); POTASSIUM,K 3.9 mmol/L (3.5-5.1)
[2023-03-09] MEDS: Furosemide 40 MG/4 ML VIAL IVPUSH SCH ×2 (07:45→13:44)
[2023-03-09] MEDS: Simethicone 80 MG Tab.Chew PO PRN ×2 (07:46→16:10)
[2023-03-09] MEDS: Lisinopril 5 MG Tab PO SCH ×2 (07:46→08:50)
[2023-03-09] MEDS: Apixaban 5 MG Tab PO SCH ×3 (07:46→20:05)
[2023-03-09] MEDS: Clopidogrel 75 MG Tab PO SCH (07:46)
[2023-03-09 08:06] LABS: CALCIUM 8.5 mg/dL (8.5-10.1); CARBON DIOXIDE,CO2 23.1 mmol/L (21.0-32.0); CREATININE 1.7 mg/dL (0.8-1.3); EST CRCL DRUG DOSING (CG) 41.64 mL/min; POTASSIUM,K 3.8 mmol/L (3.5-5.1)
[2023-03-09] MEDS: Diltiazem 25 MG/5 ML SDV IVPUSH PRN ×2 (08:54→14:46)
[2023-03-09] MEDS ORDERED: Potassium Chloride 20 MEQ Tab.ER PO ONE (08:55)
[2023-03-09] MEDS: Empagliflozin 10 MG Tab PO SCH (10:01)
[2023-03-09] MEDS ORDERED: Bisacodyl 10 MG Supp RECTAL PRN (12:35)
[2023-03-09] MEDS ORDERED: Diltiazem 25 MG/5 ML SDV IVPUSH PRN (16:49)
[2023-03-09] MEDS ORDERED: Metoprolol Tartrate 25 MG Tab PO ONE (17:35)
[2023-03-09 18:55] LABS: CALCIUM 9.4 mg/dL (8.5-10.1); CARBON DIOXIDE,CO2 25.3 mmol/L (21.0-32.0); EST CRCL DRUG DOSING (CG) 35.39 mL/min; POTASSIUM,K 4.2 mmol/L (3.5-5.1)
[2023-03-09] MEDS: atorvaSTATin 20 MG Tab PO SCH (20:04)
[2023-03-09] MEDS: cefTRIAXone 1 GM in Sodium Chloride 0.9% 50 ML IV SCH (21:32)
[2023-03-09] MEDS: Azithromycin 500 MG in Sodium Chloride 0.9% 250 ML IV SCH (23:03)
[2023-03-10 06:39] LABS: BASOPHILS PERCENT AUTO 0.1 % (0.0-1.5); EOSINOPHILS ABSOLUTE AUTO 0.1 K/uL (0.0-0.7); HEMATOCRIT 40.5 % (38.0-50.0); HEMOGLOBIN 13.9 g/dL (13.0-17.0); LYMPHOCYTES ABSOLUTE AUTO 0.9 K/uL (0.6-2.4); LYMPHOCYTES PERCENT AUTO 8.7 % (16.0-40.0); MEAN CORPUSCULAR HEMOGLOBIN 29.1 pg (27.0-32.0); MEAN CORPUSCULAR HGB CONC 34.3 g/dL (31.0-37.0); MEAN CORPUSCULAR VOLUME 84.7 fL (80.0-98.0); MONOCYTES ABSOLUTE AUTO 1.3 K/uL (0.0-0.8); MONOCYTES PERCENT AUTO 13.5 % (0.0-15.0); NEUTROPHILS ABSOLUTE AUTO 7.6 K/uL (1.4-5.7); NEUTROPHILS PERCENT AUTO 76.7 % (48.0-80.0); NRBC ABSOLUTE 0 K/uL; PLATELET COUNT,PLT 220 K/uL (150-400); RED BLOOD CELL COUNT 4.78 M/uL (4.50-5.90); WHITE BLOOD CELL COUNT,WBC 9.88 K/uL (4.0-11.0)
[2023-03-10 06:59] LABS: CALCIUM 8.9 mg/dL (8.5-10.1); CARBON DIOXIDE,CO2 24.6 mmol/L (21.0-32.0); CREATININE 1.8 mg/dL (0.8-1.3); EST CRCL DRUG DOSING (CG) 39.32 mL/min; POTASSIUM,K 4.3 mmol/L (3.5-5.1)
[2023-03-10 07:21] LABS: PERCENT FE SATURATION 9.83 % (20-55); TRANSFERRIN 163.8
[2023-03-10] MEDS: Furosemide 40 MG/4 ML VIAL IVPUSH SCH ×2 (08:51→14:54)
[2023-03-10] MEDS: Empagliflozin 10 MG Tab PO SCH (09:06)
[2023-03-10] MEDS: Lisinopril 5 MG Tab PO SCH (09:06)
[2023-03-10] MEDS: Aspirin 81 MG Tab.Chew PO SCH (09:07)
[2023-03-10] MEDS: Apixaban 5 MG Tab PO SCH ×2 (09:07→21:07)
[2023-03-10] MEDS ORDERED: Metoprolol Succinate 25 MG Tab.ER PO SCH (09:30)
[2023-03-10] MEDS ORDERED: Metoprolol Succinate 50 MG Tab.ER PO SCH (09:45)
[2023-03-10] MEDS: cefTRIAXone 1 GM in Sodium Chloride 0.9% 50 ML IV SCH (21:06)
[2023-03-10] MEDS: atorvaSTATin 20 MG Tab PO SCH (21:06)
[2023-03-10] MEDS: Simethicone 80 MG Tab.Chew PO PRN (21:14)
[2023-03-10] MEDS: Azithromycin 500 MG in Sodium Chloride 0.9% 250 ML IV SCH (22:04)
[2023-03-10] MEDS: Acetaminophen 325 MG Tab PO PRN (22:49)
[2023-03-11 06:10] LABS: BASOPHILS ABSOLUTE AUTO 0.1 K/uL (0.0-0.1); BASOPHILS PERCENT AUTO 0.6 % (0.0-1.5); EOSINOPHILS ABSOLUTE AUTO 0.2 K/uL (0.0-0.7); EOSINOPHILS PERCENT AUTO 2.2 % (0.0-7.0); HEMATOCRIT 40.1 % (38.0-50.0); HEMOGLOBIN 13.5 g/dL (13.0-17.0); LYMPHOCYTES ABSOLUTE AUTO 0.7 K/uL (0.6-2.4); MEAN CORPUSCULAR HEMOGLOBIN 28.8 pg (27.0-32.0); MEAN CORPUSCULAR HGB CONC 33.7 g/dL (31.0-37.0); MEAN CORPUSCULAR VOLUME 85.7 fL (80.0-98.0); MONOCYTES ABSOLUTE AUTO 1.4 K/uL (0.0-0.8); MONOCYTES PERCENT AUTO 14.9 % (0.0-15.0); NEUTROPHILS ABSOLUTE AUTO 6.7 K/uL (1.4-5.7); NEUTROPHILS PERCENT AUTO 74.3 % (48.0-80.0); NRBC ABSOLUTE 0 K/uL; PLATELET COUNT,PLT 221 K/uL (150-400); RED BLOOD CELL COUNT 4.68 M/uL (4.50-5.90); WHITE BLOOD CELL COUNT,WBC 9.05 K/uL (4.0-11.0)
[2023-03-11 06:28] LABS: CALCIUM 8.6 mg/dL (8.5-10.1); CREATININE 1.9 mg/dL (0.8-1.3); EST CRCL DRUG DOSING (CG) 37.25 mL/min; POTASSIUM,K 3.7 mmol/L (3.5-5.1)
[2023-03-11] MEDS ORDERED: Spironolactone 25 MG Tab PO SCH (09:00)
[2023-03-11] MEDS: Furosemide 40 MG/4 ML VIAL IVPUSH SCH ×2 (09:09→14:04)
[2023-03-11] MEDS: Aspirin 81 MG Tab.Chew PO SCH (10:35)
[2023-03-11] MEDS: Lisinopril 5 MG Tab PO SCH (10:36)
[2023-03-11] MEDS: Apixaban 5 MG Tab PO SCH (10:36)
[2023-03-11] MEDS: Empagliflozin 10 MG Tab PO SCH (10:36)
[2023-03-11] MEDS: Metoprolol Succinate 50 MG Tab.ER PO SCH ×2 (10:44→12:20)
[2023-03-11] MEDS ORDERED: Azithromycin 250 MG Tab PO SCH (12:00)
[2023-03-11] MEDS ORDERED: cefTRIAXone 1 GM in Sodium Chloride 0.9% 50 ML IV SCH (13:00)
== END 2023-03-11 16:30 | disposition home or self-care (01) | DRG 193 ==
LOC: MW.ED 22:10 → MW.MS 03-08 04:20
PROVIDERS: ADMIT Internal Medicine; ATTEND Internal Medicine
DX: J18.9 Pneumonia, unspecified organism (principal); I50.23 Acute on chronic systolic (congestive) heart failure; J96.01 Acute respiratory failure with hypoxia; E87.1 Hypo-osmolality and hyponatremia; I42.8 Other cardiomyopathies; Q21.12 Patent foramen ovale; I24.9 Acute ischemic heart disease, unspecified; I25.10 Atherosclerotic heart disease of native coronary artery without angina pectoris; I48.91 Unspecified atrial fibrillation; I08.3 Combined rheumatic disorders of mitral, aortic and tricuspid valves; I48.0 Paroxysmal atrial fibrillation; Z20.822 Contact with and (suspected) exposure to COVID-19; I25.2 Old myocardial infarction; Z79.82 Long term (current) use of aspirin; I11.0 Hypertensive heart disease with heart failure; I50.9 Heart failure, unspecified; Z98.890 Other specified postprocedural states; Z87.891 Personal history of nicotine dependence; Z79.02 Long term (current) use of antithrombotics/antiplatelets; Z79.01 Long term (current) use of anticoagulants; Z79.899 Other long term (current) drug therapy; Z95.5 Presence of coronary angioplasty implant and graft
CPT/HCPCS: 0240U; 36415; 71045; 71275; 80048; 80053; 80061; 82728; 83036; 83550; 83605; 83690; 83735; 83880; 84439; 84443; 84484; 85025; 85610; 87899; 93005; 93306; 96365; 96367; 96375; 99285; 93010; A9270-GY; J0456; J0696; J1644; J1940; J3490; J7050; Q9967